=== PATIENT | male | born 1945 | race Caucasian/White ===

== ENCOUNTER 2022-02-20 01:17 | Inpatient (IN) | payer OTHER, MEDICARE ==
[~2022-02-20] VITALS: Ht 180.3 cm; Wt 90.7 kg
[2022-02-20 01:21] VITALS: BP_SYST 132
[2022-02-20 03:12] LABS: BASOPHILS # (AUTO) 0.1 K/uL (0.0-0.2); BASOPHILS % (AUTO) 1.3 % (0.0-2.0); EOSINOPHILS # (AUTO) 0.1 K/uL (0.0-0.4); EOSINOPHILS % (AUTO) 1.7 % (0.0-4.0); HEMATOCRIT 37.5 % (36-54); HEMOGLOBIN 12.9 g/dL (14.0-18.0); LYMPHOCYTES # (AUTO) 1.5 K/uL (1.0-5.5); LYMPHOCYTES % (AUTO) 19.6 % (20.5-51.5); MEAN CORPUSCULAR HEMOGLOBIN 30 pg (27-31); MEAN CORPUSCULAR HGB CONC 35 % (32-36); MEAN CORPUSCULAR VOLUME 88 fL (79.0-98.0); MONOCYTES # (AUTO) 0.7 K/uL (0.0-1.0); MONOCYTES % (AUTO) 9.4 % (1.7-9.3); PLATELET COUNT (AUTO) 121 K/uL (130-430); RED BLOOD CELL COUNT(AUTO) 4.25 MIL/uL (4.2-6.2); RED CELL DISTRIBUTION WIDTH 15.8 % (9.0-15.0); WHITE BLOOD COUNT (AUTO) 7.4 K/uL (4.8-10.8)
[2022-02-20 03:29] LABS: ANION GAP 5 (5-15); CALCIUM 8.9 mg/dL (8.4-11.0); CHLORIDE 103 mmol/L (98-107); CREATININE 1.45 mg/dL (0.55-1.30); GLUCOSE 111 mg/dL (70-99); POTASSIUM 3.6 mmol/L (3.5-5.1); UREA NITROGEN, BLOOD 16 mg/dL (8-21)
[2022-02-20] MEDS ORDERED: NS 500 ML IV ONE (03:30)
[2022-02-20 03:37] LABS: ALANINE AMINOTRANSFERASE 24 U/L (12-78); ALBUMIN 3.4 g/dL (3.4-4.8); ASPARTATE AMINOTRANSFERASE 18 U/L (10-37); TOTAL BILIRUBIN 0.6 mg/dL (0.0-1.0)
[2022-02-20] MEDS ORDERED: METO-442 PO (04:38)
[2022-02-20] MEDS ORDERED: PRAV10TA PO (04:38)
[2022-02-20] MEDS ORDERED: MEGE20TA3 PO (04:38)
[2022-02-20] MEDS ORDERED: LEUP45SY IM (04:38)
[2022-02-20] MEDS ORDERED: ABIR250T PO (04:38)
[2022-02-20] MEDS ORDERED: DENO120V SQ (04:38)
[2022-02-20] MEDS ORDERED: PANT20TA2 PO (04:38)
[2022-02-20] MEDS ORDERED: PRED2.5T4 PO (04:38)
[2022-02-20] MEDS ORDERED: PREG75CA PO (04:38)
[2022-02-20] MEDS ORDERED: ACETAMINOPHEN 500 MG TABLET PO ONE (05:15)
[2022-02-20 06:09] LABS: BILIRUBIN,URINE NEGATIVE (NEGATIVE); BLOOD, URINE 3+ (NEGATIVE); COLOR,URINE YELLOW (YELLOW); GLUCOSE,URINE NEGATIVE (NEGATIVE); KETONES,URINE 1+ (NEGATIVE); LEUKOCYTE ESTERASE ,URINE NEGATIVE (NEGATIVE); NITRITE, URINE NEGATIVE (NEGATIVE); PROTEIN URINE NEGATIVE (NEGATIVE)
[2022-02-20 06:10] LABS: CLARITY/URINE HAZY (CLEAR)
[2022-02-20 06:19] LABS: BACTERIA,URINE MODERATE /HPF (None Seen); MUCUS,URINE None Seen /LPF (None Seen); RBC,URINE 50-80 /HPF (0-3); WBC,URINE 0-3 /HPF (0-3)
[2022-02-20 09:00] VITALS: BP_SYST 144
[2022-02-20] MEDS ORDERED: PRAVASTATIN SODIUM 10 MG TABLET (PRAVACHOL) PO SCH (09:00)
[2022-02-20] MEDS ORDERED: NALOXONE HCL 0.4 MG/ML AMP (NARCAN) IVP PRN ×2 (09:15)
[2022-02-20] MEDS ORDERED: ONDANSETRON HCL 4 MG/2 ML VIAL IVP PRN (09:15)
[2022-02-20] MEDS ORDERED: ZOLPIDEM TARTRATE 5 MG TABLET PO PRN (09:15)
[2022-02-20] MEDS ORDERED: LORazepam 2 MG/ML VIAL IVP PRN (09:15)
[2022-02-20] MEDS ORDERED: MUPIROCIN 2% TOPICAL OINTMENT 22 GM NS PRN (09:15)
[2022-02-20] MEDS ORDERED: MORPHINE 2 MG/ML INJ. SYRINGE IVP PRN (09:15)
[2022-02-20] MEDS ORDERED: MAGNESIUM SULFATE 50 ML IV PRN (09:15)
[2022-02-20 12:28] VITALS: BP_SYST 149
[2022-02-20] MEDS ORDERED: ATORVASTATIN 10 MG TABLET PO ONE (12:30)
[2022-02-20] MEDS ORDERED: METOPROLOL TARTRATE 50 MG TABLET PO ONE (12:30)
[2022-02-20] MEDS ORDERED: PANTOPRAZOLE SODIUM 40 MG TAB PO ONE (12:30)
[2022-02-20] MEDS ORDERED: ENOXAPARIN SODIUM 40 MG/0.4 ML SYRINGE SUBCUT ONE (12:30)
[2022-02-20] MEDS: cefTRIAXone 1 GM in D5W 50 ML IV SCH (12:38)
[2022-02-20] MEDS: MORPHINE 2 MG/ML INJ. SYRINGE IVP PRN ×2 (12:39→17:45)
[2022-02-20 16:00] VITALS: BP_SYST 122
[2022-02-20 20:00] VITALS: BP_SYST 132
[2022-02-20] MEDS: NACL 0.9% 1,000 ML IV SCH (20:03)
[2022-02-20] MEDS: PREGABALIN 75 MG CAPSULE (LYRICA) PO SCH (21:36)
[2022-02-20] MEDS: METOPROLOL TARTRATE 50 MG TABLET PO SCH (21:37)
[2022-02-21 04:26] VITALS: BP_SYST 145
[2022-02-21] MEDS ORDERED: COMMUNICATION ORDER XX ONE (06:00)
[2022-02-21 06:37] LABS: BASOPHILS # (AUTO) 0.1 K/uL (0.0-0.2); BASOPHILS % (AUTO) 1.1 % (0.0-2.0); EOSINOPHILS # (AUTO) 0.2 K/uL (0.0-0.4); EOSINOPHILS % (AUTO) 3.3 % (0.0-4.0); HEMATOCRIT 36.1 % (36-54); HEMOGLOBIN 12.4 g/dL (14.0-18.0); LYMPHOCYTES # (AUTO) 1.9 K/uL (1.0-5.5); LYMPHOCYTES % (AUTO) 28.5 % (20.5-51.5); MEAN CORPUSCULAR HEMOGLOBIN 30 pg (27-31); MEAN CORPUSCULAR HGB CONC 34 % (32-36); MEAN CORPUSCULAR VOLUME 88 fL (79.0-98.0); MONOCYTES # (AUTO) 0.8 K/uL (0.0-1.0); NEUTROPHILS # (AUTO) 3.6 K/uL (1.8-7.7); NEUTROPHILS % (AUTO) 55.1 % (40.0-70.0); PLATELET COUNT (AUTO) 111 K/uL (130-430); RED BLOOD CELL COUNT(AUTO) 4.13 MIL/uL (4.2-6.2); RED CELL DISTRIBUTION WIDTH 15.7 % (9.0-15.0); WHITE BLOOD COUNT (AUTO) 6.6 K/uL (4.8-10.8)
[2022-02-21 07:10] LABS: ANION GAP 10 (5-15); CALCIUM 8.8 mg/dL (8.4-11.0); CHLORIDE 106 mmol/L (98-107); CREATININE 1.15 mg/dL (0.55-1.30); GLUCOSE 104 mg/dL (70-99); POTASSIUM 3.3 mmol/L (3.5-5.1); UREA NITROGEN, BLOOD 13 mg/dL (8-21)
[2022-02-21 08:00] VITALS: BP_SYST 145
[2022-02-21] MEDS ORDERED: COMMUNICATION ORDER XX SCH (09:00)
[2022-02-21] MEDS: ENOXAPARIN SODIUM 40 MG/0.4 ML SYRINGE SUBCUT SCH (09:46)
[2022-02-21] MEDS: PREGABALIN 25 MG CAPSULE (LYRICA) PO SCH (09:47)
[2022-02-21] MEDS: ACETAMINOPHEN 325 MG TABLET PO PRN (09:48)
[2022-02-21] MEDS: PANTOPRAZOLE SODIUM 40 MG TAB PO SCH (09:48)
[2022-02-21] MEDS: ATORVASTATIN 10 MG TABLET PO SCH (09:49)
[2022-02-21] MEDS: POTASSIUM CHLORIDE 20 MEQ TAB.PRT.SR PO PRN (09:49)
[2022-02-21] MEDS: METOPROLOL TARTRATE 50 MG TABLET PO SCH ×2 (09:50→21:57)
[2022-02-21] MEDS: cefTRIAXone 1 GM in D5W 50 ML IV SCH (09:51)
[2022-02-21] MEDS: DOCUSATE SODIUM 100 MG CAPSULE PO PRN (10:00)
[2022-02-21] MEDS: NACL 0.9% 1,000 ML IV SCH (10:21)
[2022-02-21] MEDS: ABIRATERONE ACETATE 250 MG PO SCH (11:05)
[2022-02-21 11:15] VITALS: BP_SYST 133
[2022-02-21 16:00] VITALS: BP_SYST 115
[2022-02-21 20:00] VITALS: BP_SYST 135
[2022-02-21] MEDS: PREGABALIN 75 MG CAPSULE (LYRICA) PO SCH (21:56)
[2022-02-22] MEDS: NACL 0.9% 1,000 ML IV SCH (01:28)
[2022-02-22 02:13] VITALS: BP_SYST 147
[2022-02-22] MEDS: ABIRATERONE ACETATE 250 MG PO SCH (05:13)
[2022-02-22 07:00] LABS: BASOPHILS % (AUTO) 0.7 % (0.0-2.0); EOSINOPHILS # (AUTO) 0.3 K/uL (0.0-0.4); EOSINOPHILS % (AUTO) 5.6 % (0.0-4.0); HEMOGLOBIN 11.2 g/dL (14.0-18.0); LYMPHOCYTES # (AUTO) 1.5 K/uL (1.0-5.5); LYMPHOCYTES % (AUTO) 28.4 % (20.5-51.5); MEAN CORPUSCULAR HEMOGLOBIN 31 pg (27-31); MEAN CORPUSCULAR HGB CONC 35 % (32-36); MEAN CORPUSCULAR VOLUME 87 fL (79.0-98.0); MONOCYTES # (AUTO) 0.6 K/uL (0.0-1.0); MONOCYTES % (AUTO) 10.7 % (1.7-9.3); NEUTROPHILS # (AUTO) 2.8 K/uL (1.8-7.7); NEUTROPHILS % (AUTO) 54.6 % (40.0-70.0); PLATELET COUNT (AUTO) 98 K/uL (130-430); RED BLOOD CELL COUNT(AUTO) 3.68 MIL/uL (4.2-6.2); RED CELL DISTRIBUTION WIDTH 15.7 % (9.0-15.0); WHITE BLOOD COUNT (AUTO) 5.2 K/uL (4.8-10.8)
[2022-02-22 07:23] LABS: ALANINE AMINOTRANSFERASE 23 U/L (12-78); ALBUMIN 2.6 g/dL (3.4-4.8); ANION GAP 10 (5-15); ASPARTATE AMINOTRANSFERASE 19 U/L (10-37); CALCIUM 8.2 mg/dL (8.4-11.0); CHLORIDE 109 mmol/L (98-107); GLUCOSE 123 mg/dL (70-99); TOTAL BILIRUBIN 0.3 mg/dL (0.0-1.0); UREA NITROGEN, BLOOD 13 mg/dL (8-21)
[2022-02-22 08:00] VITALS: BP_SYST 157
[2022-02-22] MEDS: ENOXAPARIN SODIUM 40 MG/0.4 ML SYRINGE SUBCUT SCH (08:53)
[2022-02-22] MEDS: METOPROLOL TARTRATE 50 MG TABLET PO SCH (08:54)
[2022-02-22] MEDS: PANTOPRAZOLE SODIUM 40 MG TAB PO SCH (08:55)
[2022-02-22] MEDS: ATORVASTATIN 10 MG TABLET PO SCH (08:55)
[2022-02-22] MEDS: PREGABALIN 25 MG CAPSULE (LYRICA) PO SCH (08:55)
[2022-02-22] MEDS: DOCUSATE SODIUM 100 MG CAPSULE PO PRN (08:56)
[2022-02-22] MEDS: ACETAMINOPHEN 325 MG TABLET PO PRN (08:57)
[2022-02-22] MEDS: POTASSIUM CHLORIDE 20 MEQ TAB.PRT.SR PO PRN (09:35)
[2022-02-22 10:35] VITALS: BP_SYST 157
[2022-02-22] MEDS ORDERED: cefTRIAXone 1 GM IVPB PREMIX 50 ML IV SCH (11:00)
== END 2022-02-22 11:25 | disposition home or self-care (01) | DRG 871 ==
LOC: SED 01:17 → STU 05:31
PROVIDERS: ADMIT General Practice; ATTEND General Practice
PROC: XW033E5 Introduction of Remdesivir Anti-infective into Peripheral Vein, Percutaneous Approach, New Technology Group 5 (ICD-10-PCS; principal; 2022-02-21)
DX: A41.9 Sepsis, unspecified organism (principal); N17.0 Acute kidney failure with tubular necrosis; U07.1 COVID-19; N39.0 Urinary tract infection, site not specified; E78.00 Pure hypercholesterolemia, unspecified; G62.9 Polyneuropathy, unspecified; E78.5 Hyperlipidemia, unspecified; I10 Essential (primary) hypertension; I25.10 Atherosclerotic heart disease of native coronary artery without angina pectoris; K21.9 Gastro-esophageal reflux disease without esophagitis; Z95.5 Presence of coronary angioplasty implant and graft
CPT/HCPCS: 36415; 70450-TC; 71045; 76376; 80048; 80053; 81000; 83036; 83735; 84484; 85025; 85651-TC; 86140; 87086; 93005; 96360; 99285; G0378; J0696; J1650; J2270; J7050; J7060

== ENCOUNTER 2022-11-19 08:54 | Outpatient (CLI) | payer OTHER, MEDICARE ==
[~2022-11-19 08:54] MED LIST: ABIR250T PO; DENO120V SQ; LEUP45SY IM; MEGE20TA3 PO; METO-442 PO; PANT20TA2 PO; PRAV10TA PO; PRED2.5T4 PO; PREG75CA PO
[2022-11-19] MEDS ORDERED: REGADENOSON 0.4 MG/5 ML SYRINGE IVP ONE (09:00)
== END 2022-11-19 20:30 | disposition home or self-care (01) ==
LOC: SCA 08:54 → SNM 20:30
PROVIDERS: ATTEND Internal Medicine Cardiovascular Disease
DX: I07.1 Rheumatic tricuspid insufficiency (principal); R07.9 Chest pain, unspecified; R00.2 Palpitations
CPT/HCPCS: 78452; 93306; 93017; A9500; J2785